=== PATIENT | male | born 1980 ===

== ENCOUNTER → 2020-10-03 14:30 | Outpatient (CLI) | payer BC, SELFPAY ==
--- NOTE | ~2020-10-03 | MR_ITS ---
EXAMINATION: MR cervical spine wo con EXAM DATE: 10/03/2020 15:21 INDICATION: Neck pain, left arm pain, hand pain numbness and tingling. TECHNIQUE: Multi-sequential, multiplanar MR images of the cervical spine were obtained without contra st. Axial T2, axial T2 MERGE sequence. Sagittal T1, T2, T2 fat saturation images also obtained. Th ere is no prior study for comparison. FINDINGS: There is short segment central canal dilation measuring 2 mm in diameter at the C5-6 level , several smaller regions of dilation below this no more than 1 mm in diameter. There is mild to mode rate disc disease C4-C7. The vertebral bodies are aligned in the AP dimension. There are no suspiciou s marrow signal abnormalities. Cervicomedullary junction is normal in appearance. Incidental left t hyroid cystic lesion measuring 1.7 cm. Level by level evaluation: C2-C3: Disc does not extend beyond the endplate margin. Uncovertebral joint arthropathy: Mild. Facet joint arthropathy: Mild bilateral. Neural foraminal stenosis: No stenosis. Central canal stenosis: No stenosis. C3-C4: Disc does not extend beyond the endplate margin. Uncovertebral joint arthropathy: Mild bilateral. Facet joint arthropathy: Mild bilateral. Neural foraminal stenosis: No stenosis. Central canal stenosis: No stenosis. C4-C5: There is a mild diffuse disc bulge. Uncovertebral joint arthropathy: Mild to moderate left, mild right. Facet joint arthropathy: Mild bilateral. Neural foraminal stenosis: Moderate left, mild to moderate right. Central canal stenosis: Mild. C5-C6: There is a mild diffuse disc bulge. Uncovertebral joint arthropathy: Moderate left, mild to moderate right. Facet joint arthropathy: Mild bilateral. Neural foraminal stenosis: Moderate left, mild right. Central canal stenosis: Mild. C6-C7: There is a mild diffuse disc bulge. Uncovertebral joint arthropathy: Moderate to large left, although disc bulge likely contributing, mod erate right. Facet joint arthropathy: Mild. Neural foraminal stenosis: Severe left, moderate right. Central canal stenosis: Mild. C7-T1: Disc does not extend beyond the endplate margin. Uncovertebral joint arthropathy: Mild bilateral. Facet joint arthropathy: Mild bilateral. Neural foraminal stenosis: No stenosis. Central canal stenosis: No stenosis. IMPRESSION: 1. Small regions of central canal dilation without any other underlying etiology or suspicion of mas s lesion. Consider one-year follow-up. 2. Substantial left-sided lower cervical neural foraminal stenosis, from combination of disc bulges and uncovertebral joint arthropathy. Reviewed, dictated and finalized at location B. [employer] PROFESS[employer] IMPRESSION: 1. Small regions of central canal dilation without any other underlying etiolo gy or suspicion of mass lesion. Consider one-year follow-up. 2. Substantial left-sided lower cervical neural foraminal stenosis, from combi nation of disc bulges and uncovertebral joint arthropathy.
== END ==
PROVIDERS: PCP Family Medicine; Visit Provider Family Medicine
DX: M54.12 Radiculopathy, cervical region (principal)
CPT/HCPCS: 72141

== ENCOUNTER → 2023-08-26 10:51 | Outpatient (CLI) | payer OTHER, SELFPAY ==
--- NOTE | ~2023-08-26 | US_ITS ---
US breast LT limited 08/26/2023 11:02 Indication: Palpable left breast lump Procedure: High-resolution Limited ultrasound of the left breast Comparison: No prior studies for comparison. Findings: There is a complex heterogeneous mass in the 12:00 position near the nipple with internal v ascularity. This mass measures 11 x 9 x 7 mm. Impression: 1: Complex vascular heterogeneous 11 mm left breast mass at 12:00 near the nipple. Recommendation: Recommend diagnostic left mammogram. BI-RADS CATEGORY 0 - INCOMPLETE STUDY, NEED ADDITIONAL IMAGING EVALUATION. Reviewed, dictated and finalized at location A. ISHER Impression: 1: Complex vascular heterogeneous 11 mm left breast mass at 12:00 near the nipp le. Recommendation: Recommend diagnostic left mammogram. BI-RADS CATEGORY 0 - INCOMPLETE STUDY, NEED ADDITIONAL IMAGING EVALUATION.
== END ==
PROVIDERS: PCP Family Medicine; Visit Provider Nurse Practitioner Family
DX: N63.20 Unspecified lump in the left breast, unspecified quadrant (principal); R92.8 Other abnormal and inconclusive findings on diagnostic imaging of breast
CPT/HCPCS: 76642